=== PATIENT | male | born 1985 | race Caucasian/White ===

== ENCOUNTER 2018-05-23 13:28 | Outpatient (CLI) | payer MEDICARE, MEDICAID, SELFPAY ==
[2018-05-23 14:08] LABS: Abs Immature Grans 0.01 k/cumm (0.0-0.09); Absolute Basophil Count 0.02 k/cumm (0.0-0.2); Absolute Eosinophil Count 0.18 k/cumm (0.0-0.7); Absolute Lymphocyte Count 1.38 k/cumm (1.2-3.4); Absolute Monocyte Count 0.69 k/cumm (0.11-0.7); Absolute Neutrophil Count 3.14 k/cumm (1.2-6.7); Basophils % 0.4; Eosinophils % 3.3; HCT 47.3 % (40.0-50.0); HGB 15.9 g/dL (13.5-17.5); Immature Grans % 0.2; Lymphocytes % 25.5; Mean Corp. HGB Concentration 33.6 g/dL (32.0-36.0); Mean Corpuscular Hemoglobin 31.1 pg (27.0-33.0); Mean Corpuscular Volume 92.4 fL (80-95); Mean Platelet Volume 10.1 fL (8.0-11.0); Monocytes % 12.7; Neutrophils % 57.9; Platelet Count 288 x1000/uL (130-400); RBC 5.12 m/cumm (4.50-6.00); White Blood Cell Count 5.42 k/cumm (4.4-10.8)
[2018-05-23 14:45] LABS: ALT 20 U/L (12-78); AST 17 U/L (15-37); Albumin 4.3 g/dL (3.4-5.0); Alkaline Phosphatase 83 U/L (46-116); Anion Gap 8.8 mmol/L (3-11); BUN 15 mg/dL (7-18); Bilirubin, Total 0.6 mg/dL (0.2-1.0); CO2 28.2 mmol/L (21.0-32.0); CREATININE 1.11 mg/dL (0.70-1.30); Calcium 9.3 mg/dL (8.5-10.1); Chloride 105 mmol/L (98-107); Glucose 128 mg/dL (70-100); Sodium 142 mmol/L (136-145); Total Protein 7.8 g/dL (6.4-8.2)
[2018-05-24 09:52] LABS: HIV-1/2 Ag & Ab Screen Negative (NEGAT)
[2018-05-24 09:58] LABS: HBs Antibody, Qual Positive; HBs Antibody, Quant 521.1 mIU/mL; Hepatitis B Core Antibody Negative (NEGAT); Hepatitis B surface Ag Negative (NEGAT); Hepatitis C Ab w Rflx HCV PCR Negative (NEGAT)
[2018-05-24 10:42] LABS: Syphilis Serology (RPR) Negative (Negative)
[2018-05-24 14:18] LABS: Chlamydia Result Negative; GC Result Negative; Specimen Description URINE
[2018-05-24 16:29] LABS: Hemoglobin A1C 5.4 % (4.5-6.2)
== END 2018-05-23 13:48 ==
PROVIDERS: PCP Family Medicine; Visit Provider Family Medicine
DX: R59.9 Enlarged lymph nodes, unspecified (principal); R53.83 Other fatigue; Z11.4 Encounter for screening for human immunodeficiency virus [HIV]; Z11.59 Encounter for screening for other viral diseases; Z11.3 Encounter for screening for infections with a predominantly sexual mode of transmission
CPT/HCPCS: 36415; 80053; 86704; 86706; 86803; 87340; 87389; 87491; 87591; 83036; 85025; 86592

== ENCOUNTER 2018-08-07 00:22 | Emergency (ER) | payer OTHER, SELFPAY ==
[2018-08-07 00:24] VITALS: BP 151/73; PULSE 99; RESP 16; TEMP 36.7; O2SAT 100
--- NOTE | 2018-08-07 00:33 | ED.GENADUL_ITS ---
Discharge Plan Disposition Patient Disposition: HOME Condition: Improving Discharge Details Chief Complaint: Laceration Clinical Impression: Laceration of finger of right hand Primary Care Provider: Omar Guido ED Provider: Eloy Mcdonald Home Meds and New Rx's Prescriptions: New cephalexin 500 mg tablet 500 mg PO TID Qty: 9 RF: 0 No Action pantoprazole 40 mg tablet,delayed release (DR/EC) 40 mg PO DAILY Qty: 30 RF: 3 Discharge Instructions Instructions: Finger Laceration (ED) Additional Instructions: As we discussed, I will ask that you follow-up with orthopedics in clinic for recheck. Your name will be placed on the follow-up list and then please call the office at [phone] for an appointment time. Antibiotics for 3 days time. Return for any acute concerns in the interim. You may use Tylenol and/or ibuprofen if needed for pain Medical Decision Making 33-year-old male with laceration/near avulsion of the volar pad of the distal portion of the right long finger. Two-point discrimination was intact but the skin does appear dusky and I am fearful that he will have poor healing. Irrigated and cleansed, examined in a bloodless field without evidence of foreign body. X-ray without underlying fracture. Loosely approximated with interrupted suture. I will place him on 3 days of oral antibiotics. We will asked that he follow-up in orthopedic clinic to ensure that the wound will not require revision. I discussed this plan of care with the patient prior to discharge. HPI General Mode of arrival: ambulatory . Date/Time Provider Initiated Documentation: 08/07/18 00:25 . Limitations to Documentation: no limitations . Information obtained by: patient . History of Present Illness 33 year old M presents to the emergency department with the chief complaint of Right long finger injury at work, described as moderate, Quality is described as dull, and is localized to the right and upper extremity. Patient reports no radiation. Patient started experiencing this minute(s) and it has been constant. No relieving factors improve symptom(s), No exacerbating factors reported . Patient notes no other symptoms.. Patient did receive the following treatments prior to arrival, none Related Data Home Medications Medication Instructions Recorded Confirmed pantoprazole 40 mg tablet,delayed 40 mg PO DAILY #30 tab 07/31/18 08/07/18 release cephalexin 500 mg PO TID #9 tab 08/07/18 Previous Rx's Medication Instructions Recorded pantoprazole 40 mg tablet,delayed 40 mg PO DAILY #30 tab 07/31/18 release cephalexin 500 mg PO TID #9 tab 08/07/18 Allergies Allergy/AdvReac Type Severity Reaction Status Date / Time Penicillins Allergy Unknown Unverified 08/07/18 00:27 venom-honey bee Allergy Unknown Unverified 08/07/18 00:27 [bee venom (honey bee)] General Stated Complaint: Laceration LEATHA: 4 Review of Systems Review of Systems Tetanus up-to-date, no other injury. 6 systems reviewed and otherwise negative [facility] Medical History Substance abuse Tobacco dependence, continuous Family History Mother Breast cancer Father Essential hypertension Diabetes Alcohol abuse Sister No problems noted. Maternal Grandfather Diabetes Throat cancer Paternal Grandfather No problems noted. Maternal Grandmother No problems noted. Paternal Grandmother No problems noted. Social History Smoking/Tobacco Use Status: Current every day Tobacco Type: cigarettes Quit status: considering quitting Second Hand Exposure: Yes Alcohol Intake: former Drug use: Never Substance use type: former substance user, marijuana and painkillers Caregiver/Support person: Yes Household members: none Pets and animals: No Sexually active: Yes Do you think of yourself as: straight/heterosexual Current gender identity: male Duration: decline to answer Frequency: 5-6 times per week [place]/Catholic: Bahai Special [place] needs: No Do you feel safe at home: Yes Do you feel safe in your relationship?: Yes Exam Narrative Exam Narrative: GEN: awake, alert, oriented 3. Pleasant, well groomed, interactive. HEAD: Normocephalic, atraumatic ENT: Mucous membranes moist, oropharynx unremarkable, External ear exam unremarkable EYES: PERRL, EOMI EXT: Full ROM, no edema, no rash. Long finger with irregular laceration/avulsion to the distal portion of the volar fingertip pad/surface. Sensation intact including two-point discrimination approximately 1 cm Neuro: Grossly normal neurologic exam, conversant, interactive. Psych: Speech fluent, thoughts congruent, affect normal Course Vital Signs Temperature 36.7 C 08/07/18 00:24 Pulse 99 H 08/07/18 00:24 Respiratory Rate 16 08/07/18 00:24 Blood Pressure 151/73 H 08/07/18 00:24 Pulse Oximetry 100 08/07/18 00:24 Temperature 36.7 C 08/07/18 00:24 Temperature Source Skin 08/07/18 00:24 Pulse 99 H 08/07/18 00:24 Respiratory Rate 16 08/07/18 00:24 Respiratory Effort Non-Labored 08/07/18 00:28 Blood Pressure 151/73 H 08/07/18 00:24 Blood Pressure Position Sitting 08/07/18 00:24 Pulse Oximetry 100 08/07/18 00:24 Oxygen Delivery Method Room Air 08/07/18 00:24 Oxygen Flow Rate 0 08/07/18 00:24 Pain Level 6 08/07/18 00:24 Procedures Laceration Laceration 1: Site: hand Side (If applicable): right Size (cm): 2 Description: flap Local Anesthetic: Lidocaine 1% Pre-repair: wound explored and irrigated extensively Skin layer closed with: nylon Size (cm): 5-0 Number of sutures: 4
--- NOTE | 2018-08-07 01:10 | DI.RAD_ITS ---
SYMPTOM/DIAGNOSIS: DISTAL PAIN, INJURY RIGHT MIDDLE FINGER: Three views. No acute fracture or dislocation is present. There is soft tissue swelling seen at the distal aspect of the finger. No radiopaque foreign bodies are seen. IMPRESSION: No acute fracture or dislocation.
--- NOTE | 2018-08-07 01:17 | DI.VRAD_ITS ---
EXAM: XR Right Finger(s), 2 or More Views EXAM DATE/TIME: 08/07/2018 12:31 AM CLINICAL HISTORY: 33 years old, male; Injury or trauma; Injury history: Caught finger in a punch machine at work; Work related; Initial encounter; Right; Middle finger; Injury date: 08/07/18; Injury details: Pain and laceration to distal middle R finger TECHNIQUE: Imaging protocol: XR Right fingers. Views: Minimum 2 views. COMPARISON: CR RIGHT HAND COMPLETE 12/26/2014 1:14 PM FINDINGS: Bones/joints: Typical for age. No evidence of acute fracture. Soft tissues: Unremarkable. IMPRESSION: No acute findings. Dictated and Authenticated by: Mahendra Louis MD. Ordering:MI Lyons MD
[2018-08-07] MEDS: Cephalexin 500 MG CAP PO (01:47)
== END 2018-08-07 01:50 | disposition home or self-care (01) ==
LOC: ER 01:58
PROVIDERS: Emergency Provider Emergency Medicine; PCP Family Medicine
DX: S67.192A Crushing injury of right middle finger, initial encounter (principal); S65.512A Laceration of blood vessel of right middle finger, initial encounter; W23.1XXA Caught, crushed, jammed, or pinched between stationary objects, initial encounter
CPT/HCPCS: 12001; 99283; 73140

== ENCOUNTER 2019-09-11 04:42 | Outpatient (CLI) | payer MEDICARE, MEDICAID, SELFPAY | END 2019-09-11 05:02 | PROVIDERS: PCP Family Medicine; Visit Provider Nurse Practitioner | DX: R06.02 Shortness of breath (principal) | CPT/HCPCS: 0296T ==

== ENCOUNTER 2019-09-23 08:40 | Outpatient (CLI) | payer MEDICARE, MEDICAID, SELFPAY ==
[2019-09-24 15:47] LABS: COVID-19 RT-PCR UVMMC Result Negative (Negative)
== END 2019-09-23 09:00 ==
PROVIDERS: PCP Family Medicine; Visit Provider Family Medicine
DX: Z03.818 Encounter for observation for suspected exposure to other biological agents ruled out (principal)
CPT/HCPCS: U0003

== ENCOUNTER 2019-09-26 03:22 | Outpatient (CLI) | payer MEDICARE, MEDICAID, SELFPAY ==
--- NOTE | 2019-09-29 09:16 | W.PFT ---
Date of service: 09/26/19 Time of Service: 10:12 Pulmonary Function Test Result Interpretation Spirometry: Spirometry shows borderline mild obstructive airways disease, may represent a normal variant, no bronchodilator response Lung Volumes: Not done Diffusion Capacity: Not done Airway Pressure: Not done Impression Borderline mild obstructive airways disease, may represent normal variant, no bronchodilator response. If the diagnosis of asthma is in question, proceeding with methacholine challenge testing may prove to be useful. Therefore clinical correlation recommended Clinical Correlation therefore is recommended.
--- NOTE | 2019-10-03 08:49 | ZIOP_ITS ---
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 ?The patient was in normal sinus rhythm for the majority of the recording with an average heart rate of 72 bpm. ?There were rare isolated supraventricular ectopic beats and isolated rare ventricular ectopic beats. ?There were rare episodes of ventricular bigeminy. ?There were no episodes of ventricular tachycardia, no pauses greater than 3 seconds, no evidence of high degree heart block, no evidence of atrial fibrillation. ?Patient triggered events were associated with sinus rhythm, sinus tachycardia, supraventricular and ventricular ectopic beats as well as a 6sec episode of bigeminy.
== END 2019-09-26 03:42 ==
PROVIDERS: PCP Family Medicine; Visit Provider Family Medicine
DX: R06.02 Shortness of breath (principal); R00.2 Palpitations; F17.200 Nicotine dependence, unspecified, uncomplicated; Z83.3 Family history of diabetes mellitus
CPT/HCPCS: 94060

== ENCOUNTER 2019-10-03 08:49 | Outpatient (CLI) | payer MEDICARE, MEDICAID, SELFPAY | END 2019-10-03 09:09 | PROVIDERS: PCP Family Medicine; Visit Provider Internal Medicine Cardiovascular Disease | DX: R06.02 Shortness of breath (principal); I49.49 Other premature depolarization; I49.3 Ventricular premature depolarization; R00.0 Tachycardia, unspecified | CPT/HCPCS: 0298T ==